=== PATIENT | male | born 1965 | race African-American/Black ===

== ENCOUNTER 2018-04-12 00:47 | Day surgery (SDC) | payer OTHER ==
[~2018-04-12] VITALS: Ht 170.2 cm; Wt 58.1 kg
[2018-04-12] VITALS (8 sets, daily range): BP systolic 92–120; BP diastolic 58–77
[2018-04-12] MEDS ORDERED: NORMOSOL R SOLN(*) 1000 ML BAG 1,000 ML IV PRN (07:55)
[2018-04-12] MEDS ORDERED: LIDOCAINE/SOD BICARB 8.4% SYR ID ONE (07:55)
[2018-04-12] MEDS ORDERED: MIDAZOLAM 2 MG/2 ML VIAL IVP PRN (07:55)
--- NOTE | 2018-04-12 11:24 | NUR ---
0816 PT ARRIVED IN SD IN LEFT LATERAL POSITION, SBAR FROM Tam BENJAMIN RN AND DR. RICH, VSS 0820 DOWN TO 3L MASK 0830 1L MASK, PT STILL RESTING L LATERAL POSITION 0900 PT AWAKE, TOLERATING OJ, SALINE LOCKED IV, VSS 0934 STARTED ORTHOSTATICS, STABLE, CALLED OG TO COME SENIOR ELECTRONICS TECHNICIAN 0940 COVERED D/C INSTRUCTIONS WITH PT, WAITING ON OG [address] IAN NANCE COVERED INSTRUCTIONS WITH , OG, AND WALKED OUT TO VEHICLE AROUND 1010
== END 2018-04-12 10:10 | disposition home or self-care (01) ==
LOC: OR 00:47
PROVIDERS: ATTEND Family Medicine
DX: Z12.11 Encounter for screening for malignant neoplasm of colon (principal)